=== PATIENT | female | born 2000 | race Two or more races ===

== ENCOUNTER 2025-05-06 12:17 | Inpatient (IN) | payer OTHER, SELFPAY ==
[~2025-05-06] VITALS: Ht 160 cm; Wt 84.4 kg
--- NOTE | 2025-05-06 13:03 | ED.PDOC ---
General HPI Comments 24 y/o F, presents to the ED for CC of flank pain. Patient states, she has been experiencing right-sided flank pain with associated nausea x3days. At this time patient c/o 10/10 pain that worsens with movement and repositioning. Patient denies urinary symptoms, fever, chills, sweats, or vomiting. No other symptoms or modifying factors are present at this time. Chief Complaint: Flank Pain Time Seen by MD: 12:47 Reviewed notes: Nurses Notes, Medications, Allergies Allergies: Coded Allergies: Penicillins (Verified Allergy, Mild, 05/06/25) Information Source: Patient Mode of Arrival: Ambulatory Severity: Moderate Timing: Days Duration: Since onset Prehospital treatment: None Onset: Spontaneous Symptoms: None History of: None Location: (R) Flank Modifying factors: None associated signs and symptoms: Nausea, Flank Pain Past Medical History PAST MEDICAL HISTORY: Denies Surgical History: Denies all surgeries SOAP DRIER TENDER History: Denies all SOAP DRIER TENDER Hx Family History Family History: Unknown Social History Smoker: Non-Smoker Alcohol: Denies ETOH Use Drugs: Denies Drug Use Lives In: Home Constitutional: denies: chills, diaphoresis, fatigue, fever, malaise, sweats, weakness, others EENTM: denies: blurred vision, double vision, ear bleeding, ear discharge, ear drainage, ear pain, ear ringing, eye pain, eye redness, hearing loss, mouth pain, mouth swelling, nasal discharge, nose bleeding, nose congestion, nose pain, photophobia, tearing, throat pain, throat swelling, voice changes, others Respiratory: denies: cough, hemoptysis, orthopnea, SOB at rest, shortness of breath, SOB with excertion, stridor, wheezing, others Cardiovascular: denies: chest pain, dizzy spells, diaphoresis, Dyspnea on exertion, edema, irregular heart beat, left arm pain, lightheadedness, palpitations, PND, syncope, others Gastrointestinal: denies: abdomen distended, abdominal pain, blood streaked bowels, constipated, diarrhea, dysphagia, difficulty swallowing, hematemesis, melena, nausea, poor appetite, poor fluid intake, rectal bleeding, rectal pain, vomiting, others Genitourinary: reports: flank pain; denies: abnormal vagina bleeding, burning, dyspareunia, dysuria, frequency, hematuria, incontinence, pain, , vagina discharge, urgency, others Neurological: denies: dizziness, fainting, headache, left sided numbness, left sided weakness, numbness, paresthesia, pre-existing deficit, right sided numbness, right sided weakness, seizure, speech problems, tingling, tremors, weakness, others Musculoskeletal: denies: back pain, gout, joint pain, joint swelling, muscle pain, muscle stiffness, neck pain, others Integumetry: denies: bruises, change in color, change in hair/nails, dryness, laceration, lesions, lumps, rash, wounds, others Allergic/Immunocompromised: denies: Difficulty Healing, Frequent Infections, Hives, Itching, others Hematologic/Lymphatic: denies: anemia, blood clots, easy bleeding, easy bruising, swollen glands, others Endocrine: denies: excessive hunger, excessive sweating, excessive thirst, excessive urination, flushing, intolerance to cold, intolerance to heat, unexplained weight gain, unexplained weight loss, others Psychiatric: denies: anxiety, bipolar disorder, depression, hopeless, panic disorder, schizophrenia, sleepless, suicidal, others All Other Systems: Reviewed and Negative Physical Exam General Appearance: Moderate Distress HEENT: Normal ENT Inspection, Pharynx Normal, TMs Normal Neck: Full Range of Motion, Non-Tender, Normal, Normal Inspection Respiratory: Chest Non-Tender, Lungs Clear, No Accessory Muscle Use, No Respiratory Distress, Normal Breath Sounds Cardiovascular: No Edema, No JVD, No Murmur, No Gallop, Normal Peripheral Pu lses, Regular Rate/Rhythm Breast Exam: Deferred Gastrointestinal: No Organomegaly, Non Tender, No Pulsatile Mass, Normal Bowel Sounds, Soft Genitalia: Deferred Pelvic: Deferred Rectal: Deferred Extremities: No calf tenderness, Normal capillary refill, Normal inspection, Normal range of motion, Non-tender, No pedal edema Musculoskeletal : Apperance: Normal Neurologic: Alert, blockmason II-XII nml as Tested, No Motor Deficits, Normal Affect, Normal Mood, No Sensory Deficits Cerebellar Function: Normal Reflexes: Normal Skin: Dry, Normal Color, Warm Peripheral Pulses: 3+ Radial (R), 3+ Radial (L) Lymphatic: No Adenopathy Was a procedure done? Was a procedure done?: No Differential Diagnosis Kidney stone (Female): Pyelonephritis, Urinary obstruction, Urolithiasis Urinary Problem (Female): UTI X-Ray, Labs, Meds, VS Vital Signs Date Time Temp Pulse Resp B/P (MAP) Pulse Ox O2 Delivery O2 Flow Rate FiO2 05/06/25 16:23 73 16 126/79 05/06/25 16:06 98.4 73 16 126/79 (95) 95 98.4 05/06/25 16:00 98.3 86 16 115/88 (97) 96 98.3 05/06/25 15:53 86 16 115/88 05/06/25 15:40 Room Air* 0 21 05/06/25 14:18 98.2 88 16 120/69 (86) 98 98.2 05/06/25 12:19 98.0 75 16 133/83 97 98.0 Lab Test 05/06/25 15:05 05/06/25 13:21 Range/Units White Blood Count 7.8 4.4-10.8 10^3/uL Red Blood Count 4.86 4.0-5.20 10^6/uL Hemoglobin 14.7 12.2-16.2 g/dL Hematocrit 43.5 36.0-46.0 % Mean Corpuscular Volume 89.6 80.0-100.0 fL Mean Corpuscular Hemoglobin 30.3 28.0-32.0 pg Mean Corpuscular Hemoglobin Concent 33.8 32.0-36.0 g/dL Red Cell Distribution Width 13.0 11.8-14.3 % Platelet Count 401 140-450 10^3/uL Mean Platelet Volume 7.5 6.9-10.8 fL Neutrophils (%) (Auto) 72.0 37.0-80.0 % Lymphocytes (%) (Auto) 23.6 10.0-50.0 % Monocytes (%) (Auto) 3.6 0.0-12.0 % Eosinophils (%) (Auto) 0.3 0.0-7.0 % Basophils (%) (Auto) 0.5 0.0-2.0 % Neutrophils # (Auto) 5.6 1.6-8.6 10 ^3/uL Lymphocytes # (Auto) 1.8 0.4-5.4 10 ^3/uL Monocytes # (Auto) 0.3 0-1.3 10 ^3/uL Eosinophils # (Auto) 0 0-0.8 10 ^3/uL Basophils # (Auto) 0 0-0.2 10 ^3/uL Nucleated Red Blood Cells 0.0 % Sodium Level 141 136-145 mmol/L Potassium Level 4.3 3.5-5.1 mmol/L Chloride Level 102 98-107 mmol/L Carbon Dioxide Level 29 20-31 mmol/L Anion Gap 10 5-15 Blood Urea Nitrogen 8 L 9-23 mg/dL Creatinine 0.68 0.550-1.02 mg/dL Glomerular Filtration Rate Calc 124 >90 mL/min BUN/Creatinine Ratio 11.8 10.0-20.0 Serum Glucose 95 74-106 mg/dL Calcium Level 10.3 8.7-10.4 mg/dL Urine Color Light-yellow Yellow Urine Clarity Clear Clear Urine pH 7.5 5.0-9.0 Urine Specific [place] 1.005 1.001-1.035 Urine Protein Negative Negative Urine Ketones Negative Negative Urine Blood Negative Negative /uL Urine Nitrite Negative Negative Urine Bilirubin Negative Negative Urine Urobilinogen Normal Negative mg/dL Urine Leukocyte Esterase Negative Negative /uL Urine RBC <1 0 - 4 /hpf Urine Microscopic WBC < 1 0-5 /HPF Urine Squamous Epithelial Cells Few <5 /hpf Urine Bacteria None seen None Seen /hpf Urine Glucose Normal Normal mg/dL Urine Test Negative Negative Current Medications Medications (Trade) Dose Ordered Sig/Yamila Route Start Time Stop Time Status Last Admin Ondansetron HCl (Zofran) 4 mg ONCE ONCE IV 05/06/25 15:00 05/06/25 15:01 DC 05/06/25 15:53 Sodium Chloride 1,000 ml @ 1,000 mls/hr Q1H ONCE IVB 05/06/25 15:00 05/06/25 15:59 DC 05/06/25 15:54 Morphine Sulfate 4 mg ONCE ONCE IV 05/06/25 15:00 05/06/25 15:01 DC 05/06/25 15:53 Patient alert. Complaining of flank pain. Vitals stable. Answering questions. Possible kidney stone. Establish intravenous access. Was given fluids. Was given morphine. Was given Zofran. She continues to have pain. CT scan of the abdomen. Explained to the patient she will be admitted for pain syndrome. Continue monitoring. Time of 1ST Reevaluation: 13:13 Reevaluation 1ST: Unchanged Patient Education/Counseling: Diagnosis, Treatment Family Education/Counseling: No Family Present SEPSIS Sepsis Screen Date sepsis recognized/suspect: May 06, 2025 Time Sepsis recognized/suspect: 1219 Recent Procedure: No On Antibiotic Therapy: No Respiratory Rate >20: No Heart Rate >90: No Temp<36 C (96.8 F) or >38.3 C: No SBP <90 or MAP <65 mmHG: No New Acute Mental Status Change: No Is the patient on CPAP, BIPAP,: No Physician Orders Ct Ab Pel Wo Con-No Oral Or Iv (05/06/25 17:20) Vital Signs Date Time Temp Pulse Resp B/P (MAP) Pulse Ox O2 Delivery O2 Flow Rate FiO2 05/06/25 16:23 73 16 126/79 05/06/25 16:06 98.4 73 16 126/79 (95) 95 98.4 05/06/25 16:00 98.3 86 16 115/88 (97) 96 98.3 05/06/25 15:53 86 16 115/88 05/06/25 15:40 Room Air* 0 21 05/06/25 14:18 98.2 88 16 120/69 (86) 98 98.2 05/06/25 12:19 98.0 75 16 133/83 97 98.0 Laboratory Tests Test 05/06/25 15:05 White Blood Count 7.8 10^3/uL (4.4-10.8) Medications Medications Dose Ordered Sig/Yamila Route Start Time Stop Time Status Last Admin Dose Admin Morphine Sulfate 4 mg ONCE ONCE IV 05/06/25 15:00 05/06/25 15:01 DC 05/06/25 15:53 Ondansetron HCl 4 mg ONCE ONCE IV 05/06/25 15:00 05/06/25 15:01 DC 05/06/25 15:53 Sodium Chloride 1,000 ml @ 1,000 mls/hr Q1H ONCE IVB 05/06/25 15:00 05/06/25 15:59 DC 05/06/25 15:54 Departure 1 Departure Time of Disposition: 14:51 Impression: Primary Impression: Acute abdominal pain Disposition: 09 ADMITTED INPATIENT Admit to: Med Surg Condition: Guarded Critical Care Note Critical Care Time?: No Stability Stability form required: No Heart Score Heart Score: Heart Score Response (Comments) Value History N/A 0 EKG N/A 0 Age N/A 0 Risk Factors N/A 0 Troponin N/A 0 Total 0 I personally scribed for ODESSA GLASER MD ([email or web address]) on 05/06/25 at 13:03. Electronically submitted by Trang Portillo ([email or web address]). I personally scribed for ODESSA GLASER MD ([email or web address]) on 05/06/25 at 13:40. Electronically submitted by Trang Portillo [email or web address]). ODESSA GLASER MD May 06, 2025 13:03
[2025-05-06 15:10] LABS: Urine Protein, UAD Negative (Negative)
[2025-05-06 15:24] LABS: Hematocrit 43.5 % (36.0-46.0); Hemoglobin 14.7 g/dL (12.2-16.2); Mean Corpuscular Hemoglobin 30.3 pg (28.0-32.0); Mean Corpuscular Volume 89.6 fL (80.0-100.0); Nucleated Red Blood Cells % 0.0 %
[2025-05-06 15:30] LABS: Chloride 102 mmol/L (98-107); Potassium 4.3 mmol/L (3.5-5.1); Sodium 141 mmol/L (136-145)
[2025-05-06 15:31] LABS: Anion Gap 10 (5-15); Calcium 10.3 mg/dL (8.7-10.4); Carbon Dioxide 29 mmol/L (20-31)
[2025-05-06 15:36] LABS: BUN/Creatinine Ratio 11.8 (10.0-20.0); Blood Urea Nitrogen 8 mg/dL (9-23); Glucose 95 mg/dL (74-106)
[2025-05-06] MEDS: MORPHINE SULFATE 4 MG/ML SYR/VIAL IV ONE (15:53)
[2025-05-06] MEDS: ONDANSETRON HCL 4 MG/2 ML VIAL IV ONE (15:53)
[2025-05-06] MEDS: SODIUM CHLORIDE 0.9% 1,000 ML IVB ONE (15:54)
--- NOTE | 2025-05-06 18:33 | DVH ---
Indication: Flank pain Technique: CT axial images of the abdomen and pelvis are obtained without contrast. Coronal and sagit junior reformats were obtained. Radiation Dose Information: CTDI volume is 15.11 mGy. Dose-length product is 844.33 mGy*cm Comparison: None FINDINGS: There is limited interpretation of the abdomen and pelvis without administration of intravenous contr ast. Lung bases demonstrate no pleural effusion The adrenal glands, spleen, pancreas and liver unremarkable in shape. No CT evidence for cholelithias is. The left kidney demonstrates mild left hydroureteronephrosis. No obstructing calculus identified. Right kidney demonstrates no hydronephrosis. Stomach is partially distended. Small bowel loops are normal in caliber. Moderate volume stool in the colon. No secondary signs for appendicitis. Bladder is distended. No free pelvic fluid. No inguinal lymphadenopathy. No aggressive osseous process. IMPRESSION: Limited evaluation without contrast. Mild left hydroureteronephrosis. No obstructing calculus identified. This could be secondary to recen tly passed calculus, obstructing ureteral/ bladder lesion, urinary tract infection. Correlate clinic ally. Moderate volume stool in the colon. Other findings as described
[2025-05-06] MEDS ORDERED: ACETAMINOPHEN 325 MG TAB PO PRN (20:45)
[2025-05-06] MEDS ORDERED: ONDANSETRON HCL 4 MG/2 ML VIAL IV PRN (20:45)
--- NOTE | 2025-05-06 20:54 | DVHHPRES ---
History of Present Illness Resident Creating Document: NIRU HANSON History of Present Illness Ms. Palacios is a 24-year-old female with no prior medical history who presents to the ED with chief complaint of right flank pain. The patient states 3 days ago she woke up with right flank pain described as sharp, constant, intensity 8.5/10, radiating to right lower quadrant, worsened by laying on this region, associated with hematuria. The patient went to urgent care yesterday and was told she had a UTI and given Macrobid. She denies fever, vomiting, dysuria, chest pain, palpitations, and other symptoms. Due to persistence of pain, the patient sought medical care at the emergency room. On evaluation in the ED, the patient was moderate distress, afebrile, and with stable vitals. Initial labs show CBC and CMP within normal range, UA with no significant findings, and negative UDS. Abdominal CT shows mild left hydronephrosis with no obstructing calculus identified. The patient was started on IV pain regimen and IV fluids. She was admitted for further workup and monitoring. Past Surgical History: None Family History: DM Smoke: No ALCOHOL: none Drugs: None Lives: with Family Domestic Violence: Neg Review of Systems Review of Systems Constitutional: Denies weight loss, fever and chills. HEENT: Denies changes in vision and hearing. Respiratory: Denies shortness of breath and cough Cardiovascular: Denies chest discomfort or palpitations GI: Refers right flank pain Denies abdominal distention, diarrhea : Denies dysuria and urinary frequency. Musculoskeletal: Denies symptoms Skin: Denies rash and pruritus. Neurological: denies dizziness headache vision or hearing problems Allergies: Coded Allergies: Penicillins (Verified Allergy, Mild, 05/06/25) Medications Current Medications Medications Dose Ordered Sig/Yamila Route Start Time Stop Time Status Last Admin Dose Admin Acetaminophen 325 mg Q4HP PRN PO 05/06/25 20:45 Morphine Sulfate 2 mg Q4HPRN PRN IV 05/06/25 20:45 Ondansetron HCl 4 mg Q4HPRN PRN IV 05/06/25 20:45 Exam Vital Signs Vital Signs Date Time Temp Pulse Resp B/P (MAP) Pulse Ox O2 Delivery O2 Flow Rate FiO2 05/06/25 18:20 97.5 67 16 124/76 (92) 99 97.5 05/06/25 15:40 Room Air* 0 21 Exam General: The patient alert and oriented in person place and time. Patient following commands HEENT: Normocephalic, atraumatic, normal reactive pupils, EOM intact, pink conjunctiva, pink moist mucous membrane Respiratory/pulmonary: Bilateral chest expansion, no pain on palpation of chest wall, clear lungs bilaterally, vesicular murmurs present in almost all lung jon, no associated crackles or wheezes. Cardiovascular: Normal RRR, normal S1 and S2, no murmurs Abdomen: Abdomen nondistended, normal bowel sounds, soft, mild pain on palpation of right flank, no pain on CVA percussion, no palpable masses. Extremities: No deformities, there is no peripheral edema present at the lower extremities, normal pulses Skin: No rashes or pruritus, there is no sacral edema present at this time. Neurological: Intact cranial nerves with no focal neurologic deficits Labs/Xrays Labs Test 05/06/25 15:05 05/06/25 13:21 Range/Units White Blood Count 7.8 4.4-10.8 10^3/uL Red Blood Count 4.86 4.0-5.20 10^6/uL Hemoglobin 14.7 12.2-16.2 g/dL Hematocrit 43.5 36.0-46.0 % Mean Corpuscular Volume 89.6 80.0-100.0 fL Mean Corpuscular Hemoglobin 30.3 28.0-32.0 pg Mean Corpuscular Hemoglobin Concent 33.8 32.0-36.0 g/dL Red Cell Distribution Width 13.0 11.8-14.3 % Platelet Count 401 140-450 10^3/uL Mean Platelet Volume 7.5 6.9-10.8 fL Neutrophils (%) (Auto) 72.0 37.0-80.0 % Lymphocytes (%) (Auto) 23.6 10.0-50.0 % Monocytes (%) (Auto) 3.6 0.0-12.0 % Eosinophils (%) (Auto) 0.3 0.0-7.0 % Basophils (%) (Auto) 0.5 0.0-2.0 % Neutrophils # (Auto) 5.6 1.6-8.6 10 ^3/uL Lymphocytes # (Auto) 1.8 0.4-5.4 10 ^3/uL Monocytes # (Auto) 0.3 0-1.3 10 ^3/uL Eosinophils # (Auto) 0 0-0.8 10 ^3/uL Basophils # (Auto) 0 0-0.2 10 ^3/uL Nucleated Red Blood Cells 0.0 % Sodium Level 141 136-145 mmol/L Potassium Level 4.3 3.5-5.1 mmol/L Chloride Level 102 98-107 mmol/L Carbon Dioxide Level 29 20-31 mmol/L Anion Gap 10 5-15 Blood Urea Nitrogen 8 L 9-23 mg/dL Creatinine 0.68 0.550-1.02 mg/dL Glomerular Filtration Rate Calc 124 >90 mL/min BUN/Creatinine Ratio 11.8 10.0-20.0 Serum Glucose 95 74-106 mg/dL Hemoglobin A1c 5.3 <5.7 % A1C Calcium Level 10.3 8.7-10.4 mg/dL Urine Color Light-yellow Yellow Urine Clarity Clear Clear Urine pH 7.5 5.0-9.0 Urine Specific [place] 1.005 1.001-1.035 Urine Protein Negative Negative Urine Ketones Negative Negative Urine Blood Negative Negative /uL Urine Nitrite Negative Negative Urine Bilirubin Negative Negative Urine Urobilinogen Normal Negative mg/dL Urine Leukocyte Esterase Negative Negative /uL Urine RBC <1 0 - 4 /hpf Urine Microscopic WBC < 1 0-5 /HPF Urine Squamous Epithelial Cells Few <5 /hpf Urine Bacteria None seen None Seen /hpf Urine Glucose Normal Normal mg/dL Urine Test Negative Negative SEPSIS Sepsis Screen Date sepsis recognized/suspect: May 06, 2025 Time Sepsis recognized/suspect: 1551 Recent Procedure: No On Antibiotic Therapy: No Respiratory Rate >20: No Heart Rate >90: No Temp<36 C (96.8 F) or >38.3 C: No SBP <90 or MAP <65 mmHG: No New Acute Mental Status Change: No Is the patient on CPAP, BIPAP,: No Physician Orders Ct Ab Pel Wo Con-No Oral Or Iv (05/06/25 17:20) Drug Screen (05/06/25 20:07) Magnesium (05/06/25 20:07) Phosphorus (05/06/25 20:07) Thyroid Stimulating Hormone (05/06/25 20:07) Vitamin B12 (05/06/25 20:07) Vitamin D, 25-Hydroxy (05/06/25 20:07) Admit (05/06/25 20:33) Allergies (05/06/25 20:33) Code Status (05/06/25 20:33) Acetaminophen Tablet (Tylenol Tablet) (05/06/25 20:45) Complete Blood Count (05/07/25 04:00) Comprehensive Metabolic Panel (05/07/25 04:00) Condition: Stable (05/06/25 20:33) Stat Ekg For Chest Pain (05/06/25 20:33) Notify Md Of Changes From Base (05/06/25 20:33) Emergency Dysrhythmia Protocol (05/06/25 20:33) Rhythm Strips Once Every Shift (05/06/25 20:33) Ondansetron Hcl (Zofran) (05/06/25 20:45) Regular Diet (05/07/25 Breakfast) Hepatic Panel (05/06/25 20:48) Morphine Sulfate Injection (05/06/25 20:45) Vital Signs Date Time Temp Pulse Resp B/P (MAP) Pulse Ox O2 Delivery O2 Flow Rate FiO2 05/06/25 18:20 97.5 67 16 124/76 (92) 99 97.5 05/06/25 16:23 73 16 126/79 05/06/25 16:06 98.4 73 16 126/79 (95) 95 98.4 05/06/25 16:00 98.3 86 16 115/88 (97) 96 98.3 05/06/25 15:53 86 16 115/88 05/06/25 15:40 Room Air* 0 21 05/06/25 14:18 98.2 88 16 120/69 (86) 98 98.2 Laboratory Tests Test 05/06/25 15:05 White Blood Count 7.8 10^3/uL (4.4-10.8) Medications Medications Dose Ordered Sig/Yamila Route Start Time Stop Time Status Last Admin Dose Admin Morphine Sulfate 4 mg ONCE ONCE IV 05/06/25 15:00 05/06/25 15:01 DC 05/06/25 15:53 4 MG Ondansetron HCl 4 mg ONCE ONCE IV 05/06/25 15:00 05/06/25 15:01 DC 05/06/25 15:53 4 MG Sodium Chloride 1,000 ml @ 1,000 mls/hr Q1H ONCE IVB 05/06/25 15:00 05/06/25 15:59 DC 05/06/25 15:54 1,000 MLS/HR Assessment/Plan Assessment/Plan Assessment and Plan: Intractable abdominal pain secondary to ureterolithiasis -Abdominal CT: mild left hydroureteronephrosis, nonobstructing calculus identified, this could be secondary to recently passed calculus, obstructing ureteral/bladder lesion, urinary tract infection. - Morphine sulfate 4 mg IV months - Morphine sulfate 2 mg IV q.4h PRN - Acetaminophen 325 mg p.o. q.4 hours p.r.n. - NS 1000 cc once - Ondansetron 4 mg IV once - Ondansetron 4 mg IV q.4h PRN - Monitor renal function Left hydroureteronephrosis -Abdominal CT: mild left hydroureteronephrosis, nonobstructing calculus identified, this could be secondary to recently passed calculus, obstructing ur eteral/bladder lesion, urinary tract infection. Acute Cystitis without Hematuria - Macrobid 100 mg p.o. b.i.d. - Urine culture has been ordered Vitamin D deficiency -Vitamin D 02240 U PO q7d Obesity, BMI 31.3 kg/m2 Diet: Regular DVT prophylaxis: Not indicated, patient is ambulatory GI prophylaxis: Not indicated Case discussed with Dr. Schmidt Goals of care discussed with the patient for over 28 minutes. FULL CODE. Plan discussed with: Patient, Other (Nurses) My Orders Orders - NIRU HANSON RESIDENT Procedure Category Date Status Time Drug Screen LAB 05/06/25 In Process 20:07 Magnesium LAB 05/06/25 In Process 20:07 Phosphorus LAB 05/06/25 In Process 20:07 Thyroid Stimulating LAB 05/06/25 In Process Hormone 20:07 Vitamin B12 LAB 05/06/25 In Process 20:07 Vitamin D, 25-Hydroxy LAB 05/06/25 In Process 20:07 Admit ADMIT 05/06/25 Transmitted 20:33 Allergies RHETT 05/06/25 In Process 20:33 Code Status CODE 05/06/25 Transmitted 20:33 Acetaminophen Tablet PHA 05/06/25 In Process (Tylenol Tablet) 20:45 Complete Blood Count LAB 05/07/25 Verified 04:00 Comprehensive LAB 05/07/25 Verified Metabolic Panel 04:00 Condition: Stable RHETT 05/06/25 In Process 20:33 Stat Ekg For Chest RHETT 05/06/25 In Process Pain 20:33 Notify Md Of Changes [facility] 05/06/25 In Process From Base 20:33 Emergency Dysrhythmia [facility] 05/06/25 In Process Protocol 20:33 Rhythm Strips Once [facility] 05/06/25 In Process Every Shift 20:33 Ondansetron Hcl [facility] 05/06/25 In Process (Zofran) 20:45 Regular Diet DIET 05/07/25 Transmitted Breakfast Hepatic Panel LAB 05/06/25 In Process 20:48 Morphine Sulfate [facility] 05/06/25 In Process Injection 20:45 Date of Service: May 06, 2025 Billing Provider: KATIE CARTER MD Common Visit Codes: [id number] INP/OBS CARE (HIGH) Secondary Visit Codes: [id number] CARE PLAN 30 MINUTES NIRU HANSON RESIDENT May 06, 2025 20:54 AVINASH JOHNSTON RESIDENT May 07, 2025 04:19
[2025-05-06 21:02] LABS: Magnesium 2.2 mg/dL (1.6-2.6)
[2025-05-06 21:10] LABS: Alanine Aminotransferase 19 U/L (7-40); Alkaline Phosphatase 74 U/L (46-116)
[2025-05-06 21:11] LABS: Albumin 4.9 g/dL (3.2-4.8); Bilirubin, Direct < 0.1 mg/dL (<0.3); Bilirubin, Total 0.3 mg/dL (0.2-1.0); Total Protein 8.2 g/dL (5.7-8.2)
[2025-05-06 21:19] LABS: Amphetamine Screen, Urine Neg (NEGATIVE); Barbiturate Scree,Urine Neg (NEGATIVE); Benzodiazephine Screen, Urine Neg (NEGATIVE); Cannabinoid Screen, Urine Neg (NEGATIVE); Cocaine Screen, Urine Neg (NEGATIVE); Opiate Scree,Urine Neg (NEGATIVE); Phencyclidine Screen, Urine Neg (NEGATIVE)
[2025-05-06 23:29] VITALS: PULSE 77; RESP 16; O2SAT 98
[2025-05-06 23:35] VITALS: BP 112/67; PULSE 72; RESP 16; TEMP 97.6; O2SAT 98
[2025-05-07] VITALS (8 sets, daily range): BP systolic 87–107; BP diastolic 46–65; PULSE 59–87; RESP 16–18; TEMP 97.5–98; O2SAT 97–99
[2025-05-07] MEDS: MORPHINE SULFATE 4 MG/ML SYR/VIAL IV PRN (00:20)
[2025-05-07] MEDS: TAMSULOSIN HYDROCHLORIDE 0.4 MG CAP PO SCH (06:57)
[2025-05-07] MEDS: SODIUM CHLORIDE 0.9% 1,000 ML IV SCH (06:58)
[2025-05-07 07:06] LABS: Hematocrit 39.1 % (36.0-46.0); Hemoglobin 13.4 g/dL (12.2-16.2); Mean Corpuscular Hemoglobin 30.5 pg (28.0-32.0); Mean Corpuscular Volume 88.9 fL (80.0-100.0); Nucleated Red Blood Cells % 0.0 %
[2025-05-07 07:28] LABS: Alanine Aminotransferase 14 U/L (7-40); Albumin 4.0 g/dL (3.2-4.8); Alkaline Phosphatase 62 U/L (46-116); Anion Gap 9 (5-15); BUN/Creatinine Ratio 18.7 (10.0-20.0); Bilirubin, Total 0.3 mg/dL (0.2-1.0); Blood Urea Nitrogen 14 mg/dL (9-23); Calcium 8.8 mg/dL (8.7-10.4); Carbon Dioxide 28 mmol/L (20-31); Chloride 104 mmol/L (98-107); Glucose 89 mg/dL (74-106); Potassium 4.1 mmol/L (3.5-5.1); Sodium 141 mmol/L (136-145); Total Protein 6.8 g/dL (5.7-8.2)
[2025-05-07] MEDS: POLYETHYLENE GLYCOL 17 GM PWDR PO ONE (09:07)
[2025-05-07] MEDS: ERGOCALCIFEROL 50,000 UNIT(1.25MG) CAP PO SCH (09:07)
--- NOTE | 2025-05-07 09:13 | DVH ---
US KIDNEY HISTORY: FLANK PAIN COMPARISON: US PELVIC on DOS: 05/07/25 TECHNIQUE: Transverse and longitudinal grayscale and color doppler images were obtained of the kidney s and bladder. FINDINGS: Right kidney: Size: 10.6 cm Cortical thickness: Normal Echogenicity: Normal Stones: None Masses: None Hydronephrosis: None Ureters: Not well visualized. Other: None Left kidney: Size: 11.0 cm Cortical thickness: Normal Echogenicity: Normal Stones: None Masses: None Hydronephrosis: None Ureters: Not well visualized. Other: None Bladder: Normal Other: None. IMPRESSION: Normal renal ultrasound.
--- NOTE | 2025-05-07 09:45 | DVH ---
INDICATION: Possible ovarian cyst TECHNIQUE: Multiple real-time grayscale transabdominal sonographic images along with color and duplex Doppler of the uterus and ovaries were obtained. COMPARISON: US TRANSVAGINAL US NON OB on DOS: 05/07/25, CT CT AB PEL WO CON-NO ORAL OR IV on DOS: 05/06 FINDINGS: The uterus measures 5.5 x 4.8 x 2.8 cm. The endometrial stripe measures 0.4cm. The right ovary measures 2.7 x 2.4 x 3 x 7 cm. The left ovary measures 3.8 x 2.0 x 2.6 cm. Subsequent color and duplex Doppler interrogation of the ovaries demonstrated symmetric vascular flow to both ovaries, though this does not exclude the possibility of torsion due to the dual blood suppl y. IMPRESSION: 1. Grossly unremarkable pelvic ultrasound.
--- NOTE | 2025-05-07 11:06 | DVHPNRES ---
Progress Note Date Seen: May 07, 2025 Resident Creating Document: BETTY MCGRAW RESIDENT Medical Necessity Reason Pt with a Central, PICC or Fol: No Subjective Review of Systems Ms. Palacios is a 24-year-old female with no prior medical history who presents to the ED with chief complaint of right flank pain. The patient states 3 days ago she woke up with right flank pain described as sharp, constant, intensity 8.5/10, radiating to right lower quadrant, worsened by laying on this region, associated with hematuria. The patient went to urgent care yesterday and was told she had a UTI and given Macrobid. She denies fever, vomiting, dysuria, chest pain, palpitations, and other symptoms. Due to persistence of pain, the patient sought medical care at the emergency room. On evaluation in the ED, the patient was moderate distress, afebrile, and with stable vitals. Initial labs show CBC and CMP within normal range, UA with no significant findings, and negative UDS. Abdominal CT shows mild left hydronephrosis with no obstructing calculus identified. UDS negative. CT abdomen and pelvis revealed- Mild left hydroureteronephrosis. No obstructing calculus identified. This could be secondary to recently passed calculus, obstructing ureteral/ bladder lesion, urinary tract infection. Moderate volume stool in the colon.. Pelvic ultrasound revealed- Grossly unremarkable pelvic ultrasound. Renal ultrasound revealed- Normal renal ultrasound. Past Surgical History: None Family History: DM Smoke: No ALCOHOL: none Drugs: None Lives: with Family Domestic Violence: Neg Review of Systems Constitutional: Denies weight loss, fever and chills. HEENT: Denies changes in vision and hearing. Respiratory: Denies shortness of breath and cough Cardiovascular: Denies chest discomfort or palpitations GI: Refers right flank pain Denies abdominal distention, diarrhea : Denies dysuria and urinary frequency. Musculoskeletal: Denies symptoms Skin: Denies rash and pruritus. Neurological: denies dizziness headache vision or hearing problems Patient was seen today at bedside, labs and chart reviewed. Patient reported feeling much better today, denied acute dysuria or fever. Right renal angle mild tenderness on palpation. Patient is on oral antibiotic Macrobid. UDS negative. On IV fluid. Objective vital signs Vital Sign Date Time Temp Pulse Resp B/P (MAP) Pulse Ox O2 Delivery O2 Flow Rate FiO2 05/07/25 09:44 60 16 95/56 05/07/25 09:00 97.6 98 97.6 05/07/25 08:00 Room Air* 0 21 Total Intake and Output 05/06/25 05/06/25 05/07/25 15:00 23:00 07:00 Intake Total 200 ml Balance 200 ml medications Current Medications Medications Dose Ordered Sig/Yamila Route Start Time Stop Time Status Last Admin Dose Admin Acetaminophen 325 mg Q4HP PRN PO 05/06/25 20:45 Morphine Sulfate 2 mg Q4HPRN PRN IV 05/06/25 20:45 05/07/25 09:14 2 MG Ondansetron HCl 4 mg Q4HPRN PRN IV 05/06/25 20:45 Nitrofurantoin Macrocrystals 100 mg BID PO 05/06/25 22:00 05/07/25 09:07 100 MG Ergocalciferol 50,000 unit QWEEKLY PO 05/07/25 01:45 05/07/25 09:07 50,000 UNIT Sodium Chloride 1,000 ml @ 100 mls/hr Q10H IV 05/07/25 06:45 05/07/25 06:58 100 MLS/HR Examination General examination- awake, alert, oriented HEENT- PEERLA, no acute nasal discharge Cardiovascular- S1-S2 audible, rate and rhythm regular, no murmur Respiratory- CTAB, no wheeze or rhonchi Gastrointestinal-nontender, bowel sound+. Nondistended Musculoskeletal-no acute joint swelling or tenderness or redness Lower extremity- no leg edema Renal system-mild right renal angle tenderness Neurological- cranial nerves intact, no acute dysarthria or dysphagia Psychiatry- denies depression or SI or HI Skin- no acute rash or purpura laboratory and microbiology Laboratory Tests 05/07/25 05:04 Test 05/07/25 05:04 Range/Units Serum Glucose 89 74-106 mg/dL Problem List/Assessment/Plan Problem List/Assessment/Plan Assessment and Plan: #Intractable abdominal pain secondary to suspected Ureterolithiasis # UTI failed outpatient treatment #Acute Cystitis without Hematuria -Abdominal CT: mild left hydroureteronephrosis, nonobstructing calculus identified, this could be secondary to recently passed calculus, obstructing ureteral/bladder lesion, urinary tract infection. -pelvic ultrasound nonsignificant -renal ultrasound negative for hydronephrosis - Macrobid 100 mg p.o. b.i.d. -pending uterine culture -continue IV fluid #Vitamin D deficiency -Vitamin D 09974 U PO q7d #Obesity, BMI 31.3 kg/m2 -patient was counseled about the effect of obesity on health, healthy diet, physical activity, low-fat diet Goals of care, Code status full code ; discussed with >15 minutes PUD prophylaxis: No acute indication DVT prophylaxis: No acute indication Plan discussed with Dr. Lawler , nursing staff, Total time spent on patient evaluation, chart review, assessment and plan, discussion discussion >35 minutes Plan discussed with: Patient, Other (RN) Date of Service: May 07, 2025 Billing Provider: JERRY LAWLER MD Common Visit Codes: 09260-[id number] INP/OBS CARE(HIGH) BETTY MCGRAW RESIDENT May 07, 2025 11:06 JERRY LAWLER MD May 07, 2025 22:11
[2025-05-07] MEDS: IBUPROFEN 400 MG TAB PO PRN (17:04)
[2025-05-08 01:11] VITALS: BP 91/43; PULSE 75; RESP 16; TEMP 98.6; O2SAT 98
[2025-05-08 05:27] VITALS: BP 90/53; PULSE 69; RESP 18; TEMP 97.9; O2SAT 98
[2025-05-08] MEDS: PANTOPRAZOLE 40 MG TAB PO SCH (05:39)
--- NOTE | 2025-05-08 06:54 | DVHDSRES ---
Discharge Summary Date of Admission Resident Creating Document: BETTY MCGRAW RESIDENT May 06, 2025 at 20:33 Date of Discharge: May 08, 2025 Admitting Diagnosis Intractable right flank pain, suspected UTI Labs/Diagnostic Data: Laboratory Results Test 05/07/25 05:04 05/06/25 15:05 05/06/25 13:21 White Blood Count 8.7 10^3/uL (4.4-10.8) Red Blood Count 4.40 10^6/uL (4.0-5.20) Hemoglobin 13.4 g/dL (12.2-16.2) Hematocrit 39.1 % (36.0-46.0) Mean Corpuscular Volume 88.9 fL (80.0-100.0) Mean Corpuscular Hemoglobin 30.5 pg (28.0-32.0) Mean Corpuscular Hemoglobin Concent 34.3 g/dL (32.0-36.0) Red Cell Distribution Width 12.9 % (11.8-14.3) Platelet Count 318 10^3/uL (140-450) Mean Platelet Volume 7.6 fL (6.9-10.8) Neutrophils (%) (Auto) 62.6 % (37.0-80.0) Lymphocytes (%) (Auto) 30.1 % (10.0-50.0) Monocytes (%) (Auto) 5.9 % (0.0-12.0) Eosinophils (%) (Auto) 1.1 % (0.0-7.0) Basophils (%) (Auto) 0.3 % (0.0-2.0) Neutrophils # (Auto) 5.4 10 ^3/uL (1.6-8.6) Lymphocytes # (Auto) 2.6 10 ^3/uL (0.4-5.4) Monocytes # (Auto) 0.5 10 ^3/uL (0-1.3) Eosinophils # (Auto) 0.1 10 ^3/uL (0-0.8) Basophils # (Auto) 0 10 ^3/uL (0-0.2) Nucleated Red Blood Cells 0.0 % Sodium Level 141 mmol/L (136-145) Potassium Level 4.1 mmol/L (3.5-5.1) Chloride Level 104 mmol/L (98-107) Carbon Dioxide Level 28 mmol/L (20-31) Anion Gap 9 (5-15) Blood Urea Nitrogen 14 mg/dL (9-23) Creatinine 0.75 mg/dL (0.550-1.02) Glomerular Filtration Rate Calc 113 mL/min (>90) BUN/Creatinine Ratio 18.7 (10.0-20.0) Serum Glucose 89 mg/dL (74-106) Calcium Level 8.8 mg/dL (8.7-10.4) Total Bilirubin 0.3 mg/dL (0.2-1.0) Aspartate Amino Transferase (AST) 16 U/L (13-40) Alanine Aminotransferase (ALT) 14 U/L (7-40) Alkaline Phosphatase 62 U/L (46-116) Total Protein 6.8 g/dL (5.7-8.2) Albumin 4.0 g/dL (3.2-4.8) Hemoglobin A1c 5.3 % A1C (<5.7) Phosphorus Level 3.8 mg/dL (2.4-5.1) Magnesium Level 2.2 mg/dL (1.6-2.6) Direct Bilirubin < 0.1 mg/dL (<0.3) Vitamin B12 Level 489 pg/mL (211-911) Vitamin D 25-Hydroxy 20.8 ng/mL (30.0-100) Thyroid Stimulating Hormone (TSH) 1.81 uIU/mL (0.55-4.78) Urine Color Light-yellow (Yellow) Urine Clarity Clear (Clear) Urine pH 7.5 (5.0-9.0) Urine Specific Petros 1.005 (1.001-1.035) Urine Protein Negative (Negative) Urine Ketones Negative (Negative) Urine Blood Negative /uL (Negative) Urine Nitrite Negative (Negative) Urine Bilirubin Negative (Negative) Urine Urobilinogen Normal mg/dL (Negative) Urine Leukocyte Esterase Negative /uL (Negative) Urine RBC <1 /hpf (0 - 4) Urine Microscopic WBC < 1 /HPF (0-5) Urine Squamous Epithelial Cells Few /hpf (<5) Urine Bacteria None seen /hpf (None Seen) Urine Glucose Normal mg/dL (Normal) Urine Test Negative (Negative) Urine Opiates Screen Neg (NEGATIVE) Urine Fentanyl Screen Neg (NEGATIVE) Urine Barbiturates Screen Neg (NEGATIVE) Urine Phencyclidine Screen Neg (NEGATIVE) Urine Amphetamines Screen Neg (NEGATIVE) Urine Benzodiazepines Screen Neg (NEGATIVE) Urine Cocaine Screen Neg (NEGATIVE) Urine Cannabinoids Screen Neg (NEGATIVE) Other Laboratory Tests 05/07/25 05:04 Brief Hx & Hospital Course: Ms. Palacios is a 24-year-old female with no prior medical history who presents to the ED with chief complaint of right flank pain. The patient states 3 days ago she woke up with right flank pain described as sharp, constant, intensity 8.5/10, radiating to right lower quadrant, worsened by laying on this region, associated with hematuria. The patient went to urgent care yesterday and was told she had a UTI and given Macrobid. She denies fever, vomiting, dysuria, chest pain, palpitations, and other symptoms. Due to persistence of pain, the patient sought medical care at the emergency room. On evaluation in the ED, the patient was moderate distress, afebrile, and with stable vitals. Initial labs show CBC and CMP within normal range, UA with no significant findings, and negative UDS. Abdominal CT shows mild left hydronephrosis with no obstructing calculus identified. UDS negative. CT abdomen and pelvis revealed- Mild left hydroureteronephrosis. No obstructing calculus identified. This could be secondary to recently passed calculus, obstructing ureteral/ bladder lesion, urinary tract infection. Moderate volume stool in the colon.. Pelvic ultrasound revealed- Grossly unremarkable pelvic ultrasound. Renal ultrasound revealed- Normal renal ultrasound. Operations or Procedures [place] [id number] Ph: [phone] DIAGNOSTIC IMAGING Diagnostic Imaging Report : [id number] Signed PATIENT: CAROL PALACIOS ACCT: [id number] UNIT: [id number] : 2000 LOC: ER ROOM / BED: / AGE / SEX: 24 / F ADM STATUS: REG ER SERVICE 1360 ORDERING PHYSICIAN: ODESSA GLASER MD PROCEDURE(s): ABPL - CT AB PEL WO CON-NO ORAL OR IV REASON: Flank pain ORDER NUMBER(s): [id number], ACCESSION NUMBER(s): [id number] Indication: Flank pain Technique: CT axial images of the abdomen and pelvis are obtained without contrast. Coronal and sagittal reformats were obtained. Radiation Dose Information: CTDI volume is 15.11 mGy. Dose-length product is 844.33 mGy*cm Comparison: None FINDINGS: There is limited interpretation of the abdomen and pelvis without administration of intravenous contrast. Lung bases demonstrate no pleural effusion The adrenal glands, spleen, pancreas and liver unremarkable in shape. No CT evidence for cholelithiasis. The left kidney demonstrates mild left hydroureteronephrosis. No obstructing calculus identified. Right kidney demonstrates no hydronephrosis. Stomach is partially distended. Small bowel loops are normal in caliber. Moderate volume stool in the colon. No secondary signs for appendicitis. Bladder is distended. No free pelvic fluid. No inguinal lymphadenopathy. No aggressive osseous process. IMPRESSION: Limited evaluation without contrast. Mild left hydroureteronephrosis. No obstructing calculus identified. This could be secondary to recently passed calculus, obstructing ureteral/ bladder lesion, urinary tract infection. Correlate clinically. Moderate volume stool in the colon. Other findings as described ATED BY: MARIE GORDON MD DICTATED DATE/TIME: 05/06/251833 SIGNED BY: MARIE GORDON MD SIGNED DATE/TIME: 05/06/251833 CC: [place] [id number] Ph: [phone] DIAGNOSTIC IMAGING Diagnostic Imaging Report : [id number] Signed PATIENT: CAROL PALACIOS ACCT: [id number] UNIT: [id number] : 2000 LOC: CENTRAL ROOM / BED: [address] [place] [address] AGE / SEX: 24 / F ADM STATUS: ADM IN SERVICE 0632 ORDERING PHYSICIAN: NIRU HANSON RESIDENT PROCEDURE(s): PELUS - PELVIC REASON: Possible ovarian cyst ORDER NUMBER(s): [id number], ACCESSION NUMBER(s): [id number] INDICATION: Possible ovarian cyst TECHNIQUE: Multiple real-time grayscale transabdominal sonographic images along with color and duplex Doppler of the uterus and ovaries were obtained. COMPARISON: US TRANSVAGINAL US NON OB on DOS: 05/07/25, CT CT AB PEL WO CON-NO ORAL OR IV on DOS: 05/06/25 FINDINGS: The uterus measures 5.5 x 4.8 x 2.8 cm. The endometrial stripe measures 0.4cm. The right ovary measures 2.7 x 2.4 x 3 x 7 cm. The left ovary measures 3.8 x 2.0 x 2.6 cm. Subsequent color and duplex Doppler interrogation of the ovaries demonstrated symmetric vascular flow to both ovaries, though this does not exclude the possibility of torsion due to the dual blood supply. IMPRESSION: 1. Grossly unremarkable pelvic ultrasound. ATED BY: TORI WASHINGTON MD DICTATED DATE/TIME: 05/07/25942 SIGNED BY: TORI WASHINGTON MD SIGNED DATE/TIME: 05/07/25942 CC: [place] [id number] Ph: [phone] DIAGNOSTIC IMAGING Diagnostic Imaging Report : [id number] Signed PATIENT: CAROL PALACIOS ACCT: [id number] UNIT: [id number] : 2000 LOC: CENTRAL ROOM / BED: [address] [place] [address] AGE / SEX: 24 / F ADM STATUS: ADM IN SERVICE 1 ORDERING PHYSICIAN: NIRU HANSON RESIDENT PROCEDURE(s): KIDUS - KIDNEY REASON: FLANK PAIN ORDER NUMBER(s): [id number], ACCESSION NUMBER(s): [id number] US KIDNEY HISTORY: FLANK PAIN COMPARISON: US PELVIC on DOS: 05/07/25 TECHNIQUE: Transverse and longitudinal grayscale and color doppler images were obtained of the kidneys and bladder. FINDINGS: Right kidney: Size: 10.6 cm Cortical thickness: Normal Echogenicity: Normal Stones: None Masses: None Hydronephrosis: None Ureters: Not well visualized. Other: None Left kidney: Size: 11.0 cm Cortical thickness: Normal Echogenicity: Normal Stones: None Masses: None Hydronephrosis: None Ureters: Not well visualized. Other: None Bladder: Normal Other: None. IMPRESSION: Normal renal ultrasound. ATED BY: TOM MCCLURE MD DICTATED DATE/TIME: 05/07/25910 SIGNED BY: TOM MCCLURE MD SIGNED DATE/TIME: 05/07/25 0911 CC: Condition at Discharge: Stable Final Diagnosis/Problems List #Intractable abdominal pain secondary to suspected UTI/musculoskeletal pain # UTI failed outpatient treatment #Acute Cystitis without Hematuria #Vitamin D deficiency #Obesity, BMI 31.3 kg/m2 Discharge Disposition: Home Discharge Instruct/Medications Diet: Regular Activity: No Restrictions, As Tolerated Follow Up/Referral: Please follow up with the discharge clinic on Monday05/12/2020 with urine culture sensitivity report Please follow up with the primary care physician in 1 week Medications: Macrobid 100 mg p.o. b.i.d. for 5 days Vitamin-D 45497 units q.week for 6 weeks Avoid dehydration and nephrotoxic Scheduled Ibuprofen (Ibuprofen), 1 TAB PO Q6HPRN Nitrofurantoin Monohydrate Mac (Macrobid), 100 MG PO BID Pantoprazole Sodium Sesquihydr (Protonix), 40 MG PO DAILY Discharge Statement: "Patient was advised to return to the ER or call 911 if any headaches, dizziness, shortness of breath, chest pain, abdominal pain, bleeding, fevers, or worsening of medical condition. Patient was counseled about treatment plan, medications, possible side effects, patientverbalized understanding. All questions were answered to the best of my ability. This discharge took greater then 30 minutes in planning, reviewing documentation, counseling the patient, and discussing with other team members." ASSESSMENT ASSESSMENT Assessment Date of Service: May 08, 2025 Billing Provider: JERRY MARTINEZ MD Common Visit Codes: 65069-DAG/OBS DISCH DAY >30min BETTY MCGRAW May 08, 2025 06:54 JERRY MARTINEZ MD May 09, 2025 19:47
[2025-05-08 09:00] VITALS: BP 97/64; PULSE 64; RESP 17; TEMP 98.5; O2SAT 99
[2025-05-08] MEDS ORDERED: NITR-87 PO (09:07)
[2025-05-08] MEDS ORDERED: IBUP-1453 PO (09:07)
[2025-05-08] MEDS ORDERED: PANT40TA2 PO (09:07)
[2025-05-08 13:00] VITALS: BP 100/57; PULSE 73; RESP 18; TEMP 98.2; O2SAT 99
== END 2025-05-08 14:00 | disposition home or self-care (01) | DRG 690 ==
LOC: ER 12:17 → OVERFLOW 20:33 → CENTRAL 23:29
PROVIDERS: ADMIT Student in an Organized Health Care Education/Training Program; ATTEND Student in an Organized Health Care Education/Training Program
DX: N30.00 Acute cystitis without hematuria (principal); E55.9 Vitamin D deficiency, unspecified; E66.9 Obesity, unspecified; M79.18 Myalgia, other site; Z88.0 Allergy status to penicillin; Z83.3 Family history of diabetes mellitus; Z68.31 Body mass index [BMI] 31.0-31.9, adult
CPT/HCPCS: 36415; 74176; 76775; 76830; 76856; 80048; 80053; 80076; 80307; 81001; 81025; 82306; 82607; 83036; 83735; 84100; 84443; 85025; 87086; 96374; 96375; G0378; J2405